=== PATIENT | male | born 2000 | race Caucasian/White ===

== ENCOUNTER 2022-09-28 06:50 | Emergency (ER) | payer OTHER ==
[~2022-09-28] VITALS: Ht 165.1 cm; Wt 61.2 kg
--- NOTE | 2022-09-28 06:50 | NUR ---
PT BIB [facility], PREBOOK. TAKEN TO CHAIR
[2022-09-28] MEDS ORDERED: NACL 0.9% 1,000 ML IV ONE ×2 (06:55→08:30)
[2022-09-28 06:59] VITALS: BP 137/80
--- NOTE | 2022-09-28 07:05 | NUR ---
PT MOVED TO ER BED 10
--- NOTE | 2022-09-28 07:14 | NUR ---
Labs collected and sent to lab
[2022-09-28 07:34] LABS: BASOPHILS % (AUTO) 0.4 % (0.0-2.0); HEMATOCRIT 41.8 % (36-52); HEMOGLOBIN 14.6 g/dL (12.0-18.0); MEAN CORPUSCULAR HEMOGLOBIN 31 pg (27-31); MEAN CORPUSCULAR HGB CONC 35 g/dL (33-37); MEAN CORPUSCULAR VOLUME 89.1 fL (80-94); MONOCYTES # (AUTO) 0.6 K/uL (0.8-1.0); MONOCYTES % (AUTO) 6.6 % (1.7-9.3); NEUTROPHILS # (AUTO) 6.8 K/uL (1.8-7.7); PLATELET COUNT (AUTO) 242 K/uL (140-450); RED BLOOD CELL COUNT(AUTO) 4.69 MIL/uL (4.20-6.10); RED CELL DISTRIBUTION WIDTH 12.8 % (11.6-13.7); WHITE BLOOD COUNT (AUTO) 9.5 K/uL (4.5-11.0)
[2022-09-28 07:51] LABS: ALBUMIN 4.6 g/dL (3.4-5.0); ANION GAP 19.2 (8-16); CARBON DIOXIDE 23.4 mmol/L (21-32); CREATININE 0.8 mg/dL (0.6-1.3); POTASSIUM 3.6 mmol/L (3.5-5.1); TOTAL BILIRUBIN 0.4 mg/dL (0.0-1.0)
[2022-09-28 09:11] VITALS: BP 124/63
[2022-09-28] MEDS ORDERED: IBUP-1842 PO (09:13)
--- NOTE | 2022-09-28 09:26 | NUR ---
PATIENT BIB [facility] [employer] [facility]. PATIENT EXAMINED BY . PATIENT MEDICALLY CLEARED AND RELEASED IN CUSTODY IN STABLE CONDITION. ORIGINAL PRE-BOOK FORM GIVEN TO OFFICER
[2022-09-28] MEDS ORDERED: SODIUM CHLORIDE FLUSH 10 ML SYR IVF SCH (13:00)
--- NOTE | 2022-10-06 14:51 | NUR ---
LATE ENTRY -- CONFIRMED IV INFUSION END TIMES WITH ADMINISTERING RN - 1ST NS BOLUS INITIATED 09/28/22 AT 0710 AND DISCONTINUED AT 0800. 2ND NS BOLUS INITIATED AT 0845 AND DISCONTINUED AT 0920.
== END 2022-09-28 09:26 ==
LOC: MED 06:50
DX: F10.129 Alcohol abuse with intoxication, unspecified (principal); Y90.9 Presence of alcohol in blood, level not specified
CPT/HCPCS: 36415; 70450; 71045; 72125; 80053; 85025; 96360; 96361; 99285; G0482; Q0092; J7030